=== PATIENT | female | born 1995 | race African-American/Black ===

== ENCOUNTER 2018-12-16 22:36 | Emergency (ER) | payer MEDICAID ==
[2018-12-16 23:16] LABS: Bilirubin Negative (Negative); Blood, Urine Negative (Negative); Clarity CLEAR (Clear); Glucose, Urine (Dipstick) Negative (Negative); Leukocyte Negative (Negative); Nitrite Negative (Negative); Protein, Urine (Dipstick) Negative (Neg-Trace); Specific Gravity, Urine 1.024 (1.002-1.036); pH, Urine 6.5 (5.0-9.0)
[2018-12-16 23:17] LABS: Pregnancy Test - Urine (BHCG) Negative (Negative); Pregu Control Background? CLEAR/WHITE (CLR/WHITE); Pregu Control Bar Appear? YES (CONTROL BAR); Specific Gravity 1.024 (1.002-1.036)
== END 2018-12-16 23:33 | disposition left against medical advice (07) ==
LOC: ERS 22:36
DX: Z53.21 Procedure and treatment not carried out due to patient leaving prior to being seen by health care provider (principal)
CPT/HCPCS: 81003; 81025

== ENCOUNTER 2020-01-20 13:53 | Emergency (ER) | payer OTHER, SELFPAY ==
[2020-01-20 14:36] LABS: Bilirubin Negative (Negative); Blood, Urine Negative (Negative); Clarity Clear (Clear); Glucose, Urine (Dipstick) Normal (Negative); Leukocyte 25 Leu/uL (Negative); Mucous/LPF 1+ LPF (<2+); Nitrite Negative (Negative); Protein, Urine (Dipstick) 30 mg/dL (Neg-Trace); RBC/HPF 0-3 HPF (0-3); Squamous Epithelial 0-3 HPF (0-3); Urobilinogen 3 mg/dL (Less than 2); WBC/HPF 0-3 HPF (0-3)
[2020-01-20] MEDS ORDERED: Metoclopramide HCl 10 MG/2 ML VIAL ONE (14:36)
[2020-01-20 14:40] LABS: Bacteria/HPF 1+ HPF (None Seen)
[2020-01-20 14:46] LABS: #Basophils 0.1 thou/uL (0.0-0.2); #Eosinphils 0.1 thou/uL (0.0-0.7); #Lymphocytes 1.8 thou/uL (1.20-3.40); #Monocytes 0.4 thou/uL (0.11-0.59); #Neutrophils 5.2 thou/uL (1.40-6.50); %Basophils 0.8 % (0.0-1.0); %Eosinophils 1.1 % (0.0-10.0); %Lymphocytes 23.5 % (21.0-51.0); %Monocytes 5.1 % (0.0-10.0); %Neutrophils 69.6 % (42.0-75.0); Mean Corpuscular HGB CONC 34.1 g/dL (32.0-36.0); Mean Corpuscular Hemoglobin 31.6 pg (27.0-31.0); Mean Corpuscular Volume 92.6 fL (78.0-98.0); Mean Platelet Volume 7.4 fL (7.4-10.4); Platelet Count 303 thou/uL (130-400); RBC Distribution Width 11.2 % (11.5-14.5); Red Blood Cell (RBC) Count 4.13 mill/uL (4.20-5.40); White Blood Cell (WBC) Count 7.5 thou/uL (4.8-10.8)
[2020-01-20 15:08] LABS: ALT (SGPT) 8 U/L (8-55); AST (SGOT) 10 U/L (5-34); Albumin 4.1 g/dL (3.5-5.0); Alkaline Phosphatase 58 U/L (40-110); Anion Gap 14 mmol/L (10-20); BUN (Urea Nitrogen) 8 mg/dL (7.0-18.7); Bilirubin, Total 0.4 mg/dL (0.2-1.2); Calc. Creatinine Clearance 0 mL/min (70-130); Calcium 9.5 mg/dL (7.8-10.44); Carbon Dioxide 20 mmol/L (22-29); Chloride 104 mmol/L (98-107); Estimated GFR-MDRD Greater than 90; Globulin 3.1 g/dL (2.4-3.5); Glucose 87 mg/dL (70-105); Potassium 3.7 mmol/L (3.5-5.1); Protein, Total 7.2 g/dL (6.0-8.3); Sodium 134 mmol/L (136-145)
--- NOTE | 2020-01-20 15:40 | ULT ---
ULTRASOUND PELVIC DOPPLER DUPLEX: DATE: 01/20/2020 HISTORY: 24-year-old female with nausea and vomiting. TECHNIQUE: Transabdominal transducer used to visualize intrapelvic contents with grayscale, color-flow, and spec tral analysis. FINDINGS: Intrauterine gestational sac containing embryonic pole. [place]-rump length 1.8 cm corresponding to 8 weeks 2 days gestational age. heart rate: 165 BPM. Small subchorionic hemorrhage adjacent to inferior edge of gestational sac. Right ovary: 3.5 x 4 x 4.5 cm. Left ovary: 3 x 2 x 2.5 cm. Blood flow demonstrated in both ovaries by Doppler. No significant free fluid in cul-de-sac. 3.5 x 3 x 2.5 cm right corpus luteal cyst. IMPRESSION: 1. Live first trimester intrauterine gestation estimated to be 8 weeks 2 days gestational age. 2. Small subchorionic hemorrhage. 3. A 3.5 cm right corpus luteal cyst.
== END 2020-01-20 16:07 | disposition home or self-care (01) ==
LOC: ERS 13:53
DX: O21.0 Mild hyperemesis gravidarum (principal); Z3A.01 Less than 8 weeks gestation of pregnancy
CPT/HCPCS: 36415; 76856; 80053; 81003; 81015; 84702; 85025; 86900; 86901; 87086; 93976; 96365; J2765

== ENCOUNTER 2020-01-31 16:42 | Emergency (ER) | payer OTHER ==
[2020-01-31 17:39] LABS: #Eosinphils 0.1 thou/uL (0.0-0.7); #Lymphocytes 1.9 thou/uL (1.20-3.40); #Monocytes 0.4 thou/uL (0.11-0.59); #Neutrophils 5.3 thou/uL (1.40-6.50); %Basophils 0.5 % (0.0-1.0); %Eosinophils 1.1 % (0.0-10.0); %Lymphocytes 24.5 % (21.0-51.0); %Monocytes 5.5 % (0.0-10.0); %Neutrophils 68.5 % (42.0-75.0); Hemoglobin 12.2 g/dL (12.0-16.0); Mean Corpuscular HGB CONC 33.9 g/dL (32.0-36.0); Mean Corpuscular Hemoglobin 31.7 pg (27.0-31.0); Mean Corpuscular Volume 93.5 fL (78.0-98.0); Mean Platelet Volume 7.5 fL (7.4-10.4); Platelet Count 257 thou/uL (130-400); RBC Distribution Width 11.3 % (11.5-14.5); Red Blood Cell (RBC) Count 3.83 mill/uL (4.20-5.40); White Blood Cell (WBC) Count 7.8 thou/uL (4.8-10.8)
[2020-01-31] MEDS ORDERED: Acetaminophen 500 MG TAB ONE ×2 (17:42)
[2020-01-31 18:06] LABS: Bilirubin Negative (Negative); Blood, Urine Negative (Negative); Clarity Clear (Clear); Glucose, Urine (Dipstick) Normal (Negative); Leukocyte 75 Leu/uL (Negative); Nitrite Negative (Negative); Protein, Urine (Dipstick) 20 mg/dL (Neg-Trace); RBC/HPF 0-3 HPF (0-3); Urobilinogen 3 mg/dL (Less than 2)
[2020-01-31 18:07] LABS: Bacteria/HPF 1+ HPF (None Seen)
[2020-01-31 18:10] LABS: ALT (SGPT) 9 U/L (8-55); AST (SGOT) 10 U/L (5-34); Albumin 3.9 g/dL (3.5-5.0); Alkaline Phosphatase 51 U/L (40-110); Anion Gap 13 mmol/L (10-20); BUN (Urea Nitrogen) 9 mg/dL (7.0-18.7); Calc. Creatinine Clearance 0 mL/min (70-130); Calcium 9.4 mg/dL (7.8-10.44); Carbon Dioxide 20 mmol/L (22-29); Chloride 106 mmol/L (98-107); Estimated GFR-MDRD Greater than 90; Glucose 87 mg/dL (70-105); Protein, Total 6.9 g/dL (6.0-8.3); Sodium 135 mmol/L (136-145)
--- NOTE | 2020-01-31 18:17 | ULT ---
TRANSABDOMINAL TRANSVAGINAL PELVIC ULTRASOUND DATE:: 01/31/2020 5:14 PM CLINICAL HISTORY: History of . COMPARISON: Prior pelvic ultrasound dated January 20, 2020 TECHNIQUE: Grayscale, color Doppler and spectral Doppler images were obtained of the pelvis see a tra nsabdominal and transvaginal approach FINDINGS: UTERUS: Size: 11.2 x 7.8 cm Mass: None Cervix: Within normal limits Endometrial Thickness: Not applicable. There is a single live intrauterine gestation with cardiac activity at 169 bpm. The crown-rump length is 3.26 cm giving estimated gestational age of 10 weeks and 1 day. (78th percentile). Yolk sac is seen measuring proximately 3.7 mm. Mean sac diameter was 4.26 cm. Average gestational age by ultrasou nd is seen 10 weeks and 0 days with estimated due date August 28, 2020. The clinical dates was 9 weeks 5 days estimated due date of August 30, 2020. Previously seen subchorionic hemorrhage is no l onger present and may have been related to implantation. OVARIES: Size: Right measures 5.3 x 4.1 cm ; Left measures 3.7 x 1.9 cm Mass: There is slight interval enlargement of the right corpus luteal cyst now measuring 3.9 x 3 cm w here previously the corpus luteal cyst measures 3.5 x 3 cm.. Flow: Normal CUL-DE-SAC: No free fluid IMPRESSION: Resolution of previously seen small subchorionic hemorrhage. Single live intrauterine gestation with size and dates as above. Slight interval enlargement of the right corpus luteal cyst.
[2020-01-31 18:24] LABS: Bilirubin, Total Less than 0.2 mg/dL (0.2-1.2)
== END 2020-01-31 19:15 | disposition home or self-care (01) ==
LOC: ERS 16:42
DX: O26.891 Other specified pregnancy related conditions, first trimester (principal); R10.31 Right lower quadrant pain; Z3A.09 9 weeks gestation of pregnancy
CPT/HCPCS: 36415; 76856; 80053; 81003; 81015; 84702; 85025; 86900; 86901; 87086

== ENCOUNTER 2020-02-03 15:38 | Emergency (ER) | payer OTHER ==
[2020-02-03 16:15] LABS: #Eosinphils 0.1 thou/uL (0.0-0.7); #Lymphocytes 1.6 thou/uL (1.20-3.40); #Monocytes 0.5 thou/uL (0.11-0.59); #Neutrophils 5.6 thou/uL (1.40-6.50); %Basophils 0.6 % (0.0-1.0); %Eosinophils 0.7 % (0.0-10.0); %Lymphocytes 20.9 % (21.0-51.0); %Monocytes 6.2 % (0.0-10.0); %Neutrophils 71.7 % (42.0-75.0); Hemoglobin 12.8 g/dL (12.0-16.0); Mean Corpuscular HGB CONC 34.6 g/dL (32.0-36.0); Mean Corpuscular Hemoglobin 32.1 pg (27.0-31.0); Mean Corpuscular Volume 92.8 fL (78.0-98.0); Platelet Count 275 thou/uL (130-400); RBC Distribution Width 11.2 % (11.5-14.5); Red Blood Cell (RBC) Count 3.99 mill/uL (4.20-5.40); White Blood Cell (WBC) Count 7.8 thou/uL (4.8-10.8)
[2020-02-03 16:34] LABS: ALT (SGPT) 9 U/L (8-55); AST (SGOT) 10 U/L (5-34); Albumin 3.9 g/dL (3.5-5.0); Alkaline Phosphatase 52 U/L (40-110); Anion Gap 12 mmol/L (10-20); BUN (Urea Nitrogen) 11 mg/dL (7.0-18.7); Bilirubin, Total 0.3 mg/dL (0.2-1.2); Calc. Creatinine Clearance 0 mL/min (70-130); Calcium 9.5 mg/dL (7.8-10.44); Carbon Dioxide 20 mmol/L (22-29); Chloride 103 mmol/L (98-107); Estimated GFR-MDRD Greater than 90; Globulin 3.2 g/dL (2.4-3.5); Glucose 106 mg/dL (70-105); Lipase 78 U/L (8-78); Potassium 3.4 mmol/L (3.5-5.1); Protein, Total 7.1 g/dL (6.0-8.3); Sodium 132 mmol/L (136-145)
[2020-02-03] MEDS ORDERED: Ondansetron PF 4 MG/2 ML Vial ONE ×3 (16:44→17:46)
[2020-02-03 19:24] LABS: Bacteria/HPF 2+ HPF (None Seen); Bilirubin Negative (Negative); Blood, Urine Trace (Negative); Clarity Clear (Clear); Glucose, Urine (Dipstick) Normal (Negative); Leukocyte 75 Leu/uL (Negative); Mucous/LPF Rare LPF (<2+); Nitrite Negative (Negative); Protein, Urine (Dipstick) 20 mg/dL (Neg-Trace); RBC/HPF 0-3 HPF (0-3)
--- NOTE | 2020-02-03 19:47 | ULT ---
PELVIC ULTRASOUND History: Pelvic pain. Comparison: 01-31-2020 FINDINGS: Again noted is evidence of a single intrauterine gestation. Cardiac doppler demonstrates heart tones with a heart rate of 180 beats/minute. The crown-rump length measures 3.57 cm, consistent with gestational age by ultrasound of 10 weeks 3 days. Yolk sac is present. No subchorionic collecti on is seen to suggest subchorionic hemorrhage. Again noted is the anechoic structure in the right ovary which measures 3.4 cm and is slightly smalle r in size compared to the prior study. Linear septation is seen. This again likely represents a cor pus luteal cyst. The left ovary is not visualized on this examination. Doppler evaluation of the right ovary with spectral analysis demonstrates arterial and venous flow. No free fluid is seen in the cul-de-sac. IMPRESSION: 1. Single intrauterine gestation with heart tones documented. Gestational age by crown-rump [facility] is 10 weeks 3 days. 2. Stable right ovarian cyst with septations, probably related to a corpus luteal cyst. 3. Nonvisualization of the left ovary. POS: ALDAIR
== END 2020-02-03 20:02 | disposition home or self-care (01) ==
LOC: ERS 15:38
DX: O34.81 Maternal care for other abnormalities of pelvic organs, first trimester (principal); N83.201 Unspecified ovarian cyst, right side; Z3A.10 10 weeks gestation of pregnancy; O21.9 Vomiting of pregnancy, unspecified
CPT/HCPCS: 36415; 76856; 80053; 81003; 81015; 83690; 85025; 86900; 86901; 93976; 96361; 96374; 96376; J2405

== ENCOUNTER 2020-04-14 09:56 | Outpatient (CLI) | payer OTHER ==
--- NOTE | 2020-04-14 10:43 | ULT ---
Complete obstetrical ultrasound INDICATION: Evaluate cervix and anatomy TECHNIQUE: Grayscale, M-mode Doppler and Doppler images were obtained of the abdomen and pelvis to ev aluate the patient's known . COMPARISON: Pelvic ultrasound dated February 03, 2020 FINDINGS: Number of gestations: Single. Presentation: Breech. Placental location: Anterior Previa: No evidence for previa. Cervical length: 4.3 cm ANAHI: 13.80 cm. heart rate: 155 bpm. Biparietal diameter: 4.60cm, 20 weeks and 0 days, Not calculated.. Head circumference: 18.10 cm, 20 weeks and 4 days, Not calculated. Abdominal circumference: 14.98 cm, 20 weeks and 2 days, Not calculated. Femoral length: 3.48cm, 21 weeks and 0 days, Not calculated. Estimated weight: 361 g +/- 53g (0 lbs. 13 oz. +/- 2 ounces), 60th percentile SURVEY: head: Normal appearing. Cerebellum: Normal appearing. Cisterna magna: Normal appearing. Lateral ventricles: Normal appearing. 4 chamber heart: Normal appearing.. Stomach: Normal appearing. Kidneys: Normal appearing. Cord insertion: Normal appearing. Bladder: Normal appearing. Spine: Normal appearing. Lips and nose: Normal appearing. Extremities: Normal appearing. Three-vessel CORD: Normal appearing. The average gestational age by ultrasound is 20 weeks and 4 dayswith estimated due date of August 192019. The estimated dates by clinical data is 20 weeks and 2 dayswith estimated due date of August 30. IMPRESSION: 1. Single live intrauterine gestation with size and dates as above.
== END 2020-04-14 09:57 | disposition home or self-care (01) ==
LOC: BICULT 09:56
PROVIDERS: ATTEND Family Medicine
DX: Z34.82 Encounter for supervision of other normal pregnancy, second trimester (principal); Z3A.20 20 weeks gestation of pregnancy
CPT/HCPCS: 76805

== ENCOUNTER 2020-07-01 23:14 | Day surgery (SDC) | payer OTHER ==
[2020-07-01] MEDS ORDERED: hydrALAZINE 20 MG/ML VIAL SLOW IVP PRN (23:56)
[2020-07-02 00:14] VITALS: BP 108/68; TEMP 98.4; BMI 31.4
[2020-07-02] MEDS ORDERED: FLU VACC QS2020-21(6MOS UP)/PF 60 MCG/0.5 ML SYRINGE IM ONE (00:30)
[2020-07-02 00:31] LABS: Bilirubin Negative (Negative); Blood, Urine Negative (Negative); Clarity Clear (Clear); Glucose, Urine (Dipstick) Normal (Negative); Ketone, Urine Negative (Negative); Leukocyte 250 Leu/uL (Negative); Nitrite Negative (Negative); Protein, Urine (Dipstick) Negative (Neg-Trace); Specific Gravity, Urine 1.012 (1.002-1.036); Squamous Epithelial 0-3 HPF (0-3); pH, Urine 7.5 (5.0-9.0)
[2020-07-02 00:32] LABS: Bacteria/HPF 1+ HPF (None Seen)
--- NOTE | 2020-07-02 01:55 | SS ---
DATE OF ADMISSION: 07/01/2020 DATE OF DISCHARGE: 07/02/2020 REGULAR PHYSICIAN: Cecil Avila MD EVALUATING PHYSICIAN: Asa Quispe MD CHIEF COMPLAINT: Right lower quadrant discomfort. HISTORY OF PRESENT ILLNESS: Ms. Correa is a 25-year-old black G3 P 2-0-0-2 with an estimated date of confinement of 08/30/2020, who presents complaining of a 2-day history of right-sided pelvic pain associated with frequency of urination. She denies vaginal bleeding or ruptured membranes. She also denies uterine cramping. Her care has been with Dr. Avila and has been reportedly unremarkable. PAST OBSTETRICAL HISTORY: Includes 2 previous vaginal deliveries at term. PAST MEDICAL HISTORY: None. PAST SURGICAL HISTORY: None. CURRENT MEDICATIONS: 1. vitamins. 2. Iron. 3. Zofran taken on a p.r.n. basis. ALLERGIES: NO KNOWN ALLERGIES. SOCIAL HISTORY: Denies tobacco, alcohol, or drug use. FAMILY HISTORY: Unremarkable. REVIEW OF SYSTEMS: Denies nausea, vomiting, fever, chills, ruptured membranes, vaginal bleeding, positive for dysuria. PHYSICAL EXAMINATION: VITAL SIGNS: In triage, her vital signs are stable. She is afebrile. GENERAL: She is pleasant and in no acute distress. ABDOMEN: Soft, nontender, and gravid. PELVIC: Pelvic exam shows the cervix to be soft, mid position, but internal os is closed. The cervix is long and the vertex is presenting. heart rate tracing is stable. There are no decelerations. No discernible contractions are seen. LABORATORY STUDIES: Urinalysis returned showing a specific gravity of 1.012, negative protein, negative glucose, negative ketones, negative blood, positive leukocyte esterase. On microscopic, it shows 4 to 6 rbc's, 4 to 6 wbc's, 0 to 3 squamous cells and 1+ bacteria. ASSESSMENT: 1. A 31-4/7th week intrauterine . 2. No evidence of labor. 3. Suspected urinary tract infection. 4. Suspect round ligament pain component. PLAN: The nature of the findings was discussed with the patient in detail. She was given a prescription for Macrobid 1 p.o. b.i.d. for seven days. She was told to keep herself well hydrated at home. labor precautions were reviewed with her in detail. She voiced understanding of her discharge instructions and was sent home. She will follow up with Dr. Avila for her next scheduled appointment. Job ID: [id number]
== END 2020-07-02 01:08 | disposition home or self-care (01) ==
LOC: L&D/OP 23:14
PROVIDERS: ATTEND Family Medicine
DX: O99.891 Other specified diseases and conditions complicating pregnancy (principal); R10.31 Right lower quadrant pain; R10.2 Pelvic and perineal pain; Z3A.31 31 weeks gestation of pregnancy; Z79.899 Other long term (current) drug therapy
CPT/HCPCS: 81003; 81015; 87086

== ENCOUNTER 2020-07-26 16:44 | Inpatient (IN) | payer OTHER ==
[~2020-07-26 16:44] MED LIST: Bupivacaine PF 0.5% 30 ML VIAL ONE
[2020-07-26] MEDS ORDERED: Penicillin G Potassium 5 MILL.UNITS VIAL ONE (17:20)
[2020-07-26] MEDS ORDERED: Ibuprofen 800 MG TAB PO PRN (17:23)
[2020-07-26] MEDS ORDERED: Promethazine HCl 25 MG/ML VIAL IM PRN ×3 (17:23→22:11)
[2020-07-26] MEDS ORDERED: Ondansetron PF 4 MG/2 ML Vial IVP PRN ×3 (17:23→22:11)
[2020-07-26] MEDS ORDERED: NS / Oxytocin 40 units/1000ml 1,000 ML IV PRN ×2 (17:23→20:04)
[2020-07-26] MEDS ORDERED: Lidocaine 1% (PF) 30 ML VIAL SC PRN ×2 (17:23→20:04)
[2020-07-26] MEDS ORDERED: HYDROcodone/Acetaminophen 5/325 mg Tablet PO PRN ×2 (17:23)
[2020-07-26] MEDS ORDERED: hydrALAZINE 20 MG/ML VIAL SLOW IVP PRN ×2 (17:23→21:49)
[2020-07-26] MEDS ORDERED: Fentanyl 4 mcg/Bup 0.1% Cadd 100 ML ONE (17:25)
--- NOTE | 2020-07-26 17:26 | PDOC.BPN ---
- Brief Progress Note Encounter Date: 07/26/20 H&P Dictated by me Patient seen Admit to JORDAN joseph
[2020-07-26] MEDS ORDERED: Penicillin G Potassium 5 MILL.UNITS in Sodium Chloride 0.9% 100 ML IVPB SCH (17:30)
[2020-07-26 17:35] LABS: Hemoglobin 11.2 g/dL (12.0-16.0); Mean Corpuscular HGB CONC 34.4 g/dL (32.0-36.0); Mean Corpuscular Hemoglobin 32.5 pg (27.0-31.0); Mean Corpuscular Volume 94.5 fL (78.0-98.0); Mean Platelet Volume 7.5 fL (7.4-10.4); Platelet Count 270 thou/uL (130-400); RBC Distribution Width 12.8 % (11.5-14.5); Red Blood Cell (RBC) Count 3.43 mill/uL (4.20-5.40); White Blood Cell (WBC) Count 10.1 thou/uL (4.8-10.8)
[2020-07-26] MEDS: Lactated Ringer's 1,000 ML IV SCH (17:35)
--- NOTE | 2020-07-26 17:40 | HP ---
TIME OF EVALUATION: 1705 hours This is a patient of Dr. Avila who has asked us to cover tonight. EGA is 35 weeks and 0 days. CHIEF COMPLAINT: Contractions and possible leakage of water just as she was getting up to triage. HISTORY OF PRESENT ILLNESS: In brief, this patient is a 25-year-old, G3, P2 with 2 previous term vaginal deliveries who stated that she had intercourse yesterday (vaginal penetration) with ejaculation inside the vagina and then today she started kam. When she arrived in triage, she had leakage of fluid concerning for ruptured membranes. She has good movement and denies any issues. Contractions about every 3-5 minutes. REVIEW OF SYSTEMS: Complete review of systems was checked and is otherwise negative unless specified in the HPI. PAST MEDICAL HISTORY: Negative. PAST SURGICAL HISTORY: None. ALLERGIES: NONE. SOCIAL HISTORY: Denies alcohol, tobacco, and drug use on my questioning this . OB HISTORY: Two previous vaginal deliveries at term and this was complicated by UTI, but that was treated. MONITOR: heart tones were in the 130s to 140s and they were reactive for gestational age and contractions were about every 3-5 minutes or so. PHYSICAL EXAMINATION: GENERAL: The patient is having contraction discomfort, but is in no acute distress. VITAL SIGNS: Are stable, and she is afebrile. She is normotensive. PELVIC: Estimated weight is roughly about 6 pounds or so. I performed a sterile speculum examination after discussing with her the procedure. I did find clear copious fluid leaking through the cervix and pooling in the posterior vaginal fornix. I then proceeded to perform a sterile vaginal exam and find her cervix to be 8 cm dilated, 90% effaced, and 0 to +1 station. She is cephalic with sutures palpated on my exam. ASSESSMENT: This is a 25-year-old, G3, P2 with 2 previous term deliveries, now with labor at 35 weeks and 0 days with eminent delivery pending. PLAN: 1. Penicillin for GBS coverage. 2. We have notified pediatrics of the patient's status. 3. Dr. Avila is not available. 4. Routine admission and pain control. 5. The patient will deliver soon and as she is in the late interval, we will hold off on steroids as she is likely to not have a full 4 or 6 hour benefit. 6. Anticipate spontaneous progress. 7. I have seen the patient at bedside, performed an exam, and plan is as dictated. Job ID: [id number]
[2020-07-26 17:51] VITALS: BMI 29.5
[2020-07-26 18:16] LABS: Syphilis Antibody Nonreactive (Nonreactive); Syphilis Antibody Index 0.03 S/CO (<1.00 Non-Reactive)
[2020-07-26 18:17] LABS: HBSAg Index 0.15 S/CO (0-0.99); HIV (1/2) Antibody/Antigen Non-Reactive (NonReactive); HIV 1/2 INDEX 0.11 S/CO (<1.00); Hep B Surf Ag Non-Reactive S/CO (NonReactive)
[2020-07-26] MEDS ORDERED: Betamet Acet/Betamet Na Ph 30 MG/5 ML VIAL ONE (18:38)
--- NOTE | 2020-07-26 18:40 | PDOC.BPN ---
- Brief Progress Note Encounter Time: 18:40 Still 8cm...will order celestone 12mg IM x 1.
[2020-07-26] MEDS ORDERED: Betamet Acet/Betamet Na Ph 30 MG/5 ML VIAL IM SCH (19:00)
[2020-07-26] MEDS ORDERED: EPHEDRINE 25 MG/5 ML SYRINGE SLOW IVP PRN (19:13)
[2020-07-26] MEDS ORDERED: Lactated Ringer's 500 ML IV PRN (19:13)
[2020-07-26] MEDS ORDERED: diphenhydrAMINE 50 MG/ML VIAL IVP PRN ×2 (19:13→22:11)
[2020-07-26] MEDS ORDERED: Acetaminophen 325 MG TAB PO PRN (19:13)
[2020-07-26] MEDS ORDERED: Naloxone HCl 0.4 mg/ml Vial IVP PRN ×4 (19:13→22:11)
[2020-07-26] MEDS ORDERED: Fentanyl 4 mcg/Bupivacaine 0.1% Cassette 100 ML EPIDURAL SCH (19:15)
[2020-07-26] MEDS ORDERED: Communication Order-Pharmacy FS SCH ×2 (19:15→22:15)
[2020-07-26] MEDS ORDERED: NS w/ Oxytocin 10 units 500 ML IV SCH (20:15)
[2020-07-26] MEDS ORDERED: Bicitra 30 ML UDCUP ONE (20:42)
[2020-07-26] MEDS ORDERED: Lidocaine 2% 10 ML INJ ONE (20:45)
[2020-07-26] MEDS ORDERED: Morphine PF 10 MG/10 ML VIAL ONE (20:45)
[2020-07-26] MEDS ORDERED: Oxytocin 10 UNITS/ML VIAL ONE (20:58)
[2020-07-26] MEDS ORDERED: PHENYLEPHRINE-NS 100 MCG/ML 10 ML SYRINGE ONE (21:07)
[2020-07-26] MEDS ORDERED: ePHEDrine 50 MG/ML VIAL ONE (21:19)
[2020-07-26 21:29] LABS: Actual Bicarbonate (HCO3v) 19 mEq/L (22-28); Base Excess -8.1 mEq/L (-2.0 to +3.0); pH (Cord, venous) 7.25 (7.32-7.43)
[2020-07-26] MEDS ORDERED: Lanolin Ointment 7 GM TUBE TOP PRN (21:49)
[2020-07-26] MEDS ORDERED: Acetaminophen/Codeine 30-300mg Tablet PO PRN ×2 (21:49)
--- NOTE | 2020-07-26 21:54 | PRG ---
DATE OF SERVICE: 07/26/2020 Section Preop Note TIME SEEN: Approximately 2040 hours. indication: In brief, this patient was admitted by me and Dr. Berry several hours ago for labor at 8 cm. She is now 9 cm, complete effacement, and +1 station by my exam about 5 minutes ago. However, the patient is having persistent deep variable decelerations with episodes reaching down to the 60s and 80s. Despite an amnioinfusion in place, and the fact that she is not with eminent delivery, I have made the decision to proceed with a based on the estimated gestational age of 35 weeks and recalcitrant (not responsive) deep variable decels at 9 cm. She is also having some bloody fluid per vagina, so I am not sure if she is having a marginal abruption or other etiology. I have discussed this with the patient and although the heart tones are now back about to the 150s to 140s with moderate variability, these variable decelerations have been repetitive. So, out of abundance of caution, we are proceeding with primary section at 35 weeks for non-reassuring heart rate tracing, category 2 with persistent deep and recurrent variable decelerations at 9 cm. I have performed a vag exam myself at beside. Job ID: [id number] [facility]PITALGreyson
[2020-07-26] MEDS ORDERED: Ibuprofen 800 MG TAB PO SCH (22:00)
--- NOTE | 2020-07-26 22:00 | PDOC.BPN ---
- Brief Progress Note Encounter Time: 22:00 Primary LTCS op note dictated No complications noted EBL 900ml No QBL as pre-delivery volume not recorded as we were focused on the CS performance. Please see dictation
[2020-07-26 22:05] LABS: Hemoglobin 9.1 g/dL (12.0-16.0)
[2020-07-26] MEDS ORDERED: Meperidine HCl/PF 25 MG/ML VIAL SLOW IVP PRN (22:11)
[2020-07-26] MEDS ORDERED: Promethazine HCl 25 MG SUPP PR PRN (22:11)
[2020-07-26] MEDS ORDERED: Naloxone HCl 0.4 mg/ml Vial IV PRN (22:11)
[2020-07-26] MEDS ORDERED: L&D-Morphine 4 MG/ML VIAL SLOW IVP PRN (22:11)
[2020-07-26] MEDS ORDERED: Ondansetron HCl/PF 4 MG/2 ML Vial IVP PRN (22:11)
[2020-07-26] MEDS ORDERED: HYDROmorphone 2 MG/ML VIAL SLOW IVP PRN (22:11)
[2020-07-26] MEDS ORDERED: Ketorolac Tromethamine 30 MG/ML VIAL IVP SCH (22:15)
--- NOTE | 2020-07-26 22:57 | OP ---
DATE OF PROCEDURE: 07/26/2020 SECTION NOTE PREOPERATIVE DIAGNOSIS: labor at 35 weeks with recurrent category 2 tracing/persistent deep variable decelerations at 9 cm. This was not responsive to amnioinfusion and maternal positional changes. POSTOPERATIVE DIAGNOSES: 1. labor at 35 weeks with recurrent category 2 tracing/persistent deep variable decelerations at 9 cm. This was not responsive to amnioinfusion and maternal positional changes. 2. Status post primary low transverse section via Pfannenstiel skin incision. PROCEDURE: Primary low transverse section via Pfannenstiel skin incision. SURGEON: Deborah Berry () OIL WELL LOGGER: Jovan Ayala MD (myself). STAFF: Jovan Ayala MD (myself). ANESTHESIA: Labor epidural. ANTIBIOTICS: Ancef and Zithromax per protocol. INTRAVENOUS FLUIDS: Approximately 1.5 L crystalloid. ESTIMATED BLOOD LOSS: About 900 mL (it is important to note that there is no QBL, because as we were focusing on performing the section in a timely manner, the predelivery/pre-hysterotomy fluid was not adequately measured. Nonetheless, there was no suspicion intraoperative that PPH had occurred. Urine output is by Clark catheter without complication. Please see anesthesia record for amount). FINDINGS: 1. Baby in cephalic presentation and was occiput posterior, but there was no nuchal cord or body cord. 2. Three-vessel cord. 3. Small placenta, but again the patient is 35 weeks, so that is not unusual. We will send that to pathology. 4. Baby was vigorous at with spontaneous cry. 5. NICU team present. 6. Apgars by verbal communication were 7 and 8. 7. Blood gases. Umbilical blood gases were sent. COMPLICATIONS: None. COUNTS: Correct. Note: During the procedure, patient did have an episode of hypotension with blood pressures about 80/60s, but she was never tachycardic. The patient was alert throughout this whole time and never felt nauseous. With discussion with the MESSENGER FLOORPERSON (Syed), he did not feel that this was necessarily a blood loss issue, but may have been a faulty lead on the machine. Nonetheless, we did call for a stat H and H just to make sure that there was no issue with blood loss, although again that was not the suspicion intraoperatively. DESCRIPTION OF PROCEDURE: After proper informed consent was explained to the patient, she was transported to the Labor and Delivery operating room, where she was dosed and tested of her labor epidural anesthesia that dosed and tested of her labor epidural anesthesia. Patient's abdomen was prepped and draped in the usual sterile fashion and again it was tested and after confirming an appropriate level, a Pfannenstiel skin incision was made with a scalpel. Bovie cautery on cut mode was used to dissect the subcutaneous tissue off the level of the fascia and the fascia was identified and cleaned off any overlying fat. Fascia was entered in a transverse fashion. The fascia was entered in a transverse fashion with Bovie cautery on cut mode. Care was taken to avoid underlying structures. Rectus muscles were off the fascia both superiorly and inferiorly in the midline and the rectus muscles were out laterally. Underlying peritoneum was entered by blunt dissection and an Luis O retractor was placed into the wound for retraction. A low transverse hysterotomy was made with a scalpel. Clear fluid was noted at rupture of membranes and the baby was delivered without incident. The baby was vigorous and delayed cord clamping was allowed for about 30 seconds. Then the cord was clamped, transected, and the baby was handed to the NICU team for evaluation. Placenta was massaged out of the uterine cavity and it was intact. It was sent to pathology. Uterine curettage was then performed with a dry laparotomy sponge, i.e., uterine curettage with a dry laparotomy sponge. Hysterotomy was closed in 2 layers using #1 Monocryl. The 1st layer was in a running locking fashion and the 2nd layer, which was imbricating was not locking. An additional 2 [id number] sutures were closed on the patient's right hysterotomy edge due to a small bleeder that was noted, but this was rendered hemostatic very quickly with the suture. Copious irrigation was then done and after confirming hemostasis once again, all instruments were removed from the abdominopelvic cavity and the parietal perineum was closed in the midline with 2-0 chromic suture. The fascia was closed with 0 PDS x2 in a running nonlocking fashion. This was tied in the middle. Copious irrigation was done of the subcutaneous tissue and the subcutaneous tissue was closed with 3-0 plain gut. Skin edges were reapproximated with 3-0 Monocryl in a typical subcuticular stitch. Skin was closed by Dr. Deborah Berry. The patient will go to recovery in good and stable condition. Job ID: [id number] [facility], [place]
[2020-07-26] MEDS ORDERED: Ketorolac Tromethamine 30 MG/ML VIAL ONE (23:08)
[2020-07-26] MEDS: Ketorolac Tromethamine 30 MG/ML VIAL IVP PRN (23:15)
[2020-07-26] MEDS: Penicillin G 2.5 MILL.units 2.5 MILL.UNITS in Premix Bag 1 BAG IVPB SCH (23:16)
[2020-07-27] MEDS: Penicillin G 2.5 MILL.units 2.5 MILL.UNITS in Premix Bag 1 BAG IVPB SCH ×2 (01:32→03:48)
[2020-07-27] MEDS: Simethicone Chewable 80 MG TAB PO PRN (02:55)
[2020-07-27] MEDS: Lactated Ringer's 1,000 ML IV SCH ×3 (03:48→18:40)
[2020-07-27] MEDS: Ketorolac Tromethamine 30 MG/ML VIAL IVP PRN (05:12)
[2020-07-27 05:59] LABS: Hemoglobin 7.5 g/dL (12.0-16.0); Mean Corpuscular HGB CONC 34.3 g/dL (32.0-36.0); Mean Corpuscular Hemoglobin 32.9 pg (27.0-31.0); Mean Corpuscular Volume 95.9 fL (78.0-98.0); Mean Platelet Volume 7.5 fL (7.4-10.4); Platelet Count 206 thou/uL (130-400); RBC Distribution Width 12.6 % (11.5-14.5); Red Blood Cell (RBC) Count 2.29 mill/uL (4.20-5.40); White Blood Cell (WBC) Count 12.6 thou/uL (4.8-10.8)
--- NOTE | 2020-07-27 06:29 | PDOC.BPN ---
- Brief Progress Note Encounter Time: 06:30 HCT check: HCT was 32, then 26 in OR, and this AM run it was 21.9. I have ordered a recheck at 1400 today
--- NOTE | 2020-07-27 06:52 | PDOC.PP ---
Post Progress Note Post Day #: 1 Subjective: Patient feeling well this morning, states her pain is well controlled. Has passed flatus. Does complain of some occasional itching, says this happens "after all my pregnancies". Has been tolerating PO fluid intake but not attempted PO solids. PO intake tolerated: yes Flatus: yes Ambulation: no Vital Signs (12 hours) Temp Pulse Resp BP Pulse Ox 07/27/20 05:20 98.3 F 91 16 106/60 07/27/20 01:00 98.1 F 86 16 112/72 97 Weight Weight 83.007 kg - Physical Examination General: NAD Respiratory: non-labored breathing Abdominal: no distention, appropriately TTP Fundus firm & at: umbilicus Extremities: negative homans (B) Skin: no rash (Bandage overlying CS incision dry with no apparent drainage) Neurological: no gross focal deficits Psychiatric: A&Ox3, normal affect Result Diagrams: 07/27/20 05:48 Additional Labs: Post Labs Hep Bs Antigen Non-Reactive S/CO (NonReactive) 07/26/20 17:25 Blood Type B POSITIVE 07/26/20 17:25 (1) labor in third trimester with delivery Code(s): O60.14X0 - LABOR THIRD TRI W DELIVERY THIRD TRI, UNSP Status: Acute (2) Acute blood loss as cause of postoperative anemia Code(s): D62 - ACUTE POSTHEMORRHAGIC ANEMIA Status: Acute (3) Delivery by section Code(s): RLA8769 - Status: Acute (4) Variable heart rate decelerations, delivered Code(s): O76 - ABNLT IN HEART RATE AND RHYTHM COMP LABOR AND DELIVERY Status: Acute - Assessment/Plan Patient is a 25 yo G3 now P2103 who delivered at 35.0 wga via pLTCS for distress: in Third Trimester, now delivered -delivered at 35.0 wga @ 2101 on 07/27/2020 via pLTCS for distress -routine care on women's/environmental health manager unit -[place] prn and Motrin char for pain control -has passed flatus, tolerated PO intake, will encourage ambulation today -Benadryl prn for itching Acute Blood Loss Anemia -QBL 925 mL -intra op H/H 9.1/26.1, 5 hr post-op H/H 7.5/21.9 -will draw another H/H at 1400 today -continue to monitor vitals closely, currently normotensive and HR wnl Dispo: Stable, will continue to monitor closely for symptomatic anemia and redraw H/H at 1400 today. Anticipate discharge in next 48 hours.
--- NOTE | 2020-07-27 08:01 | PDOC.BPN ---
- Brief Progress Note Encounter Time: 08:00 OP NOTE ADDENDUM: Intraop, the uterus appeared to have a BANDL RING. I did not dictate that originally but now at check out, as we discuss, classic appearence of the ring intraop
[2020-07-27] MEDS ORDERED: Varicella virus, LIVE 0.5 ML VIAL SC ONE (09:00)
[2020-07-27] MEDS ORDERED: Adacel (T-DAP) 0.5 ML SYRINGE IM ONE (09:00)
[2020-07-27] MEDS ORDERED: Measles/Mumps/Rubella 10 MCG/0.5 ML VIAL SC ONE (09:00)
[2020-07-27] MEDS ORDERED: Acetaminophen/Codeine 30-300mg Tablet PO PRN ×2 (10:15)
[2020-07-27] MEDS ORDERED: HYDROcodone/Acetaminophen 5/325 mg Tablet PO PRN (13:47)
[2020-07-27] MEDS: Ibuprofen 800 MG TAB PO SCH ×2 (13:53→22:54)
[2020-07-27 14:00] LABS: Hemoglobin 7.3 g/dL (12.0-16.0)
--- NOTE | 2020-07-27 16:37 | PDOC.EVN ---
Event Note - Event Note Event Note: Repeat H&H 7.3/.1 stable from 7.5. HR 80 to low 90's. Asymptomatic. Continue to monitor. Addendum - Attending - Attending Attestation Date/Time: 07/27/20 [id number] I personally evaluated the patient and discussed the management with Dr. Mcfarlane. I agree with the History, Examination, Assessment and Plan documented above.
[2020-07-27 18:19] LABS: SARS-CoV-2 MS2 Positive; SARS-CoV-2 N Gene Negative; SARS-CoV-2 S Gene Negative; SARS-CoV-2 by NAA Not Detected (NotDetected); SARS-CoV-2 orf1ab Negative
[2020-07-28] MEDS ORDERED: Ibuprofen 800 MG TAB PO SCH (06:00)
[2020-07-28] MEDS: Lactated Ringer's 1,000 ML IV SCH ×3 (07:19→18:04)
[2020-07-28] MEDS: Ibuprofen 800 MG TAB PO SCH ×3 (08:00→21:29)
[2020-07-28] MEDS: Simethicone Chewable 80 MG TAB PO PRN ×2 (08:00→16:14)
[2020-07-28] MEDS: HYDROcodone/Acetaminophen 5/325 mg Tablet PO PRN ×4 (08:01→21:29)
[2020-07-29] MEDS: Lactated Ringer's 1,000 ML IV SCH ×3 (00:14→16:50)
[2020-07-29] MEDS: Ibuprofen 800 MG TAB PO SCH ×2 (05:21→13:15)
[2020-07-29 08:25] VITALS: BP 95/54; TEMP 98.2
[2020-07-29] MEDS: HYDROcodone/Acetaminophen 5/325 mg Tablet PO PRN ×2 (10:48→17:03)
[2020-07-29] MEDS: Simethicone Chewable 80 MG TAB PO PRN ×2 (10:49→17:03)
== END 2020-07-29 17:05 | disposition home or self-care (01) | DRG 786 ==
LOC: L&D/OP 16:44 → L&D 17:23 → 3SW 07-27 01:49
PROVIDERS: ADMIT Family Medicine; ATTEND Family Medicine
PROC: 10D00Z1 Extraction of Products of Conception, Low, Open Approach (ICD-10-PCS; principal; 2020-07-26)
PROC: 3E0E7GC Introduction of Other Therapeutic Substance into Products of Conception, Via Natural or Artificial Opening (ICD-10-PCS; 2020-07-26)
DX: O42.913 Preterm premature rupture of membranes, unspecified as to length of time between rupture and onset of labor, third trimester (principal); O60.13X0 Preterm labor second trimester with preterm delivery third trimester, not applicable or unspecified; D62 Acute posthemorrhagic anemia; O76 Abnormality in fetal heart rate and rhythm complicating labor and delivery; O99.02 Anemia complicating childbirth; Z20.828 Contact with and (suspected) exposure to other viral communicable diseases; Z3A.35 35 weeks gestation of pregnancy; Z37.0 Single live birth
CPT/HCPCS: 36415; 51702; 82805; 85027; 86780; 86850; 86900; 86901; 87340; 87389; 87635; 88307; 90715; 99285; J0690; J0702; J1170; J1200; J1885; J2270; J2310; J2540; J3490; S0020; U0003

== ENCOUNTER 2021-08-03 13:21 | Emergency (ER) | payer OTHER | END 2021-08-03 14:13 | disposition home or self-care (01) | LOC: ERS 13:21 | DX: L25.9 Unspecified contact dermatitis, unspecified cause (principal) | CPT/HCPCS: 99282 ==

== ENCOUNTER 2022-01-14 08:34 | Emergency (ER) | payer OTHER | END 2022-01-14 09:34 | disposition home or self-care (01) | LOC: ERS 08:34 | DX: L30.9 Dermatitis, unspecified (principal) | CPT/HCPCS: 99282 ==

== ENCOUNTER 2022-01-20 10:28 | Emergency (ER) | payer OTHER ==
[2022-01-20] MEDS ORDERED: Hydrocortisone Sod Succ/PF 100 mg/2 ml Vial ONE (12:10)
== END 2022-01-20 12:34 | disposition home or self-care (01) ==
LOC: ERS 10:28
DX: L30.9 Dermatitis, unspecified (principal)
CPT/HCPCS: 96372; 99282; J1720

== ENCOUNTER 2022-01-27 11:29 | Emergency (ER) | payer OTHER ==
[2022-01-27] MEDS ORDERED: Dexamethasone 4 MG TAB ONE ×2 (12:23→12:26)
[2022-01-27] MEDS ORDERED: Dexamethasone 4 mg/ml Vial ONE (12:26)
== END 2022-01-27 12:30 | disposition home or self-care (01) ==
LOC: ERS 11:29
DX: L25.9 Unspecified contact dermatitis, unspecified cause (principal)
CPT/HCPCS: 99282; J1100; J8540

== ENCOUNTER 2022-01-28 10:36 | Emergency (ER) | payer OTHER | END 2022-01-28 11:35 | disposition home or self-care (01) | LOC: ERS 10:36 | DX: R21 Rash and other nonspecific skin eruption (principal) | CPT/HCPCS: 99281 ==

== ENCOUNTER 2022-10-14 08:18 | Emergency (ER) | payer OTHER | END 2022-10-14 10:07 | disposition left against medical advice (07) | LOC: ERS 08:18 | DX: Z53.21 Procedure and treatment not carried out due to patient leaving prior to being seen by health care provider (principal) ==

== ENCOUNTER 2022-10-14 17:05 | Emergency (ER) | payer OTHER ==
[2022-10-14] MEDS ORDERED: methylPREDNISolone Sod Succ/PF 125 MG/2 ML VIAL ONE (18:27)
== END 2022-10-14 18:54 | disposition home or self-care (01) ==
LOC: ERS 17:05
DX: L50.9 Urticaria, unspecified (principal)
CPT/HCPCS: 96372; 99282; J2930

== ENCOUNTER 2022-11-24 01:34 | Emergency (ER) | payer OTHER ==
[2022-11-24 01:51] LABS: Bilirubin Negative (Negative); Blood, Urine Negative (Negative); Clarity Clear (Clear); Glucose, Urine (Dipstick) Normal (Negative); Ketone, Urine Negative (Negative); Leukocyte Negative Leu/uL (Negative); Nitrite Negative (Negative); Protein, Urine (Dipstick) Negative (Neg-Trace); Specific Gravity, Urine 1.018 (1.002-1.036); Urobilinogen Normal mg/dL (Less than 2)
[2022-11-24 05:56] LABS: Pregnancy Test - Urine (BHCG) Negative (Negative); Pregu Control Background? CLEAR/WHITE (CLR/WHITE); Pregu Control Bar Appear? YES (CONTROL BAR); Specific Gravity 1.018 (1.002-1.036)
== END 2022-11-24 04:40 | disposition home or self-care (01) ==
LOC: ERS 01:34
DX: B37.31 Acute candidiasis of vulva and vagina (principal)
CPT/HCPCS: 81003; 81025; 99283

== ENCOUNTER 2023-01-13 09:03 | Outpatient (CLI) | payer OTHER | END 2023-01-13 09:04 | disposition home or self-care (01) | LOC: BICULT 09:03 | PROVIDERS: ATTEND Nurse Practitioner Women's Health | DX: R10.2 Pelvic and perineal pain (principal) | CPT/HCPCS: 76856; 93976 ==

== ENCOUNTER 2023-05-10 19:19 | Emergency (ER) | payer OTHER ==
[2023-05-10] MEDS ORDERED: Dexamethasone 4 mg/ml Vial ONE (20:32)
== END 2023-05-10 20:43 | disposition home or self-care (01) ==
LOC: ERS 19:19
DX: R21 Rash and other nonspecific skin eruption (principal)
CPT/HCPCS: 96372; 99282; J1100

== ENCOUNTER 2023-06-07 09:12 | Emergency (ER) | payer OTHER ==
[2023-06-07] MEDS ORDERED: Dexameth. Sod Phosp. 10 MG/ML (CHEMO USE ONLY) ONE (09:56)
== END 2023-06-07 10:15 | disposition home or self-care (01) ==
LOC: ERS 09:12
DX: L50.9 Urticaria, unspecified (principal)
CPT/HCPCS: 96372; 99282; J1100

== ENCOUNTER 2023-07-04 19:20 | Emergency (ER) | payer OTHER ==
[2023-07-04 20:23] LABS: #Basophils 0.1 thou/uL (0.0-0.2); #Eosinphils 0.3 thou/uL (0.0-0.7); #Monocytes 0.3 thou/uL (0.11-0.59); #Neutrophils 3.5 thou/uL (1.40-6.50); %Eosinophils 4.3 % (0.0-10.0); %Lymphocytes 38.2 % (21.0-51.0); %Monocytes 4.3 % (0.0-10.0); %Neutrophils 52.1 % (42.0-75.0); Hematocrit 37.7 % (36.0-47.0); Hemoglobin 12.3 g/dL (12.0-16.0); Mean Corpuscular HGB CONC 32.6 g/dL (32.0-36.0); Mean Corpuscular Hemoglobin 30.1 pg (27.0-31.0); Mean Corpuscular Volume 92.2 fl (78.0-98.0); Platelet Count 350 10x3/uL (130-400); RBC Distribution Width 13.6 % (11.5-14.5); Red Blood Cell (RBC) Count 4.09 mill/uL (4.20-5.40); White Blood Cell (WBC) Count 6.7 10x3/uL (4.8-10.8)
[2023-07-04 20:30] LABS: BHCG - Serum Negative (NEGATIVE); Pregs Control Background? CLEAR/WHITE (CLR/WHITE); Pregs Control Bar Appear? YES (CONTROL BAR)
[2023-07-04 21:28] LABS: ALT (SGPT) 11 U/L (8-55); AST (SGOT) 16 U/L (5-34); Albumin 4.6 g/dL (3.5-5.0); Alkaline Phosphatase 71 U/L (40-110); Anion Gap 10 mmol/L (10-20); BUN (Urea Nitrogen) 10 mg/dL (7.0-18.7); Bilirubin, Total 0.2 mg/dL (0.2-1.2); Calc. Creatinine Clearance 0 mL/min (70-130); Calcium 9.3 mg/dL (7.8-10.44); Carbon Dioxide 25 mmol/L (22-29); Chloride 105 mmol/L (98-107); Estimated GFR 92; Globulin 2.8 g/dL (2.4-3.5); Glucose 93 mg/dL (70-105); Potassium 3.6 mmol/L (3.5-5.1); Protein, Total 7.4 g/dL (6.0-8.3); Sodium 136 mmol/L (136-145)
== END 2023-07-04 21:11 | disposition home or self-care (01) ==
LOC: ERS 19:20
DX: N93.9 Abnormal uterine and vaginal bleeding, unspecified (principal)
CPT/HCPCS: 36415; 80053; 84703; 85025; 86850; 86900; 86901; 99284

== ENCOUNTER 2023-09-02 13:55 | Emergency (ER) | payer OTHER ==
[2023-09-02] MEDS ORDERED: Dexamethasone 10 MG/ML VIAL ONE (15:08)
== END 2023-09-02 15:32 | disposition home or self-care (01) ==
LOC: ERS 13:55
DX: L50.9 Urticaria, unspecified (principal)
CPT/HCPCS: 96372; 99282; J1100